=== PATIENT | male | born 2000 | race Caucasian/White ===

== ENCOUNTER 2022-04-29 06:53 | Emergency (ER) | payer BC, SELFPAY ==
--- NOTE | ~2022-04-29 | XR_ITS ---
EXAMINATION: XR CHEST CLINICAL INFORMATION: Chest pain COMPARISON: April 26, 2016 TECHNIQUE: PA view of the chest was obtained. FINDINGS: No significant abnormality is noted involving the heart, lungs, mediastinum, bony thorax or soft tissues. XR/XR chest 1V IMPRESSION: No acute disease.
--- NOTE | ~2022-04-29 | CT_ITS ---
EXAMINATION: CT HEAD WITHOUT CONTRAST CLINICAL INFORMATION: Seizure COMPARISON: April 26, 2016 TECHNIQUE: Contiguous axial imaging was performed from the skull base to vertex without intravenous administration of contrast. This CT examination was performed using dose optimization techniques as appropriate, variously including the following: *Automated exposure control *Adjustment of mA and/or kV according to patient size (this includes techniques or standardized protocols for targeted exams where dose is matched to indication/reason for exam; i.e. extremities or head) *Use of iterative reconstruction technique DLP: 648 mGy-cm FINDINGS: No intracranial hemorrhage is identified. No abnormal extra-axial fluid collection. No significant mass effect or midline structure shift is seen. The ventricles, sulci, and cisterns appear unremarkable. Perales-white matter interface is maintained. Visualized paranasal sinuses and mastoid air cells unremarkable. CT/CT head/brain wo IV con IMPRESSION: No acute intracranial pathology.
[2022-04-29 07:06] VITALS: BP 132/90; BP 157/102; PULSE 112; PULSE 115; RESP 18; TEMP 36.5; O2SAT 100; BMI 24.8
[2022-04-29 07:16] VITALS: BP 132/90; PULSE 101; RESP 16; TEMP 36.5; O2SAT 99
--- NOTE | 2022-04-29 07:20 | ECG_ITS ---
Test Reason : CHEST PAIN Blood Pressure : / mmHG Vent. Rate : 113 BPM Atrial Rate : 113 BPM P-R Int : 128 ms QRS Dur : 086 ms QT Int : 328 ms P-R-T Axes : 066 078 044 degrees QTc Int : 449 ms Sinus tachycardia Otherwise normal ECG No previous ECGs available Referred By: Amarjit Mcintyre Electronically Signed By:Jorge Ball
--- NOTE | 2022-04-29 07:29 | ED_ITS ---
HPI - General Adult General Chief complaint: Seizure Stated complaint: Lethargy Time Seen by Provider: 04/29/22 07:19 Source: EMS Mode of arrival: EMS History of Present Illness HPI narrative: This is a 21 years old male presented to the emergency department after an episode of unresponsiveness at home, is unclear if he had a syncope versus seizure, patient does not remember what happened, he did not bite his tongue he is not incontinent of urine. He has history of accelerated idioventricular rhythm he is on metoprolol. Onset (ago): hour(s) (1) Radiation: non-radiation Severity: mild Relieving factors: none Exacerbating factors: none Related Data Home Medications Medication Instructions Recorded Confirmed metoprolol succinate 100 mg 100 mg PO DAILY 11/09/21 12/26/21 tablet,extended release 24 hr Previous Rx's Medication Instructions Recorded levetiracetam 500 mg tablet 500 mg PO Q12H #60 tabs 04/29/22 (Keppra) Allergies Allergy/AdvReac Type Severity Reaction Status Date / Time No Known Allergies Allergy Verified 12/26/21 10:54 [No Known Allergies*] Review of Systems Review of Systems: Yes all other systems are reviewed and are negative ENT: Reports system reviewed and no additional complaints, except as documented Respiratory: Respiratory: Reports no additional respiratory complaints Genitourinary: Genitourinary: Reports no additional male genitourinary complaints [facility] Past Medical History [facility] Narrative: Accelerated idioventricular rhythm a Family History Family History Father Cholecystitis Hypertension Heart attack, Onset Age: 48 Mother Asthma Epilepsy Social History Social History Housing: House Alcohol intake: never Patient Tobacco Use Status: Never used Tobacco e-Cigarette/Vaping Use: Never Used Advance Directives: No Advance Directives Information Provided: No service: No Current occupational status: employed Current occupation: [employer] Cognitive needs: No Hearing needs: No Vision needs: No Physical Exam ED Vital Signs: Vital Signs - 24 hr 04/29/22 07:06 04/29/22 07:16 04/29/22 09:07 Temperature 97.7 F 97.7 F 97.8 F Pulse Rate 115 H 101 H 111 H Respiratory Rate 18 16 14 Blood Pressure 132/90 H 132/90 H 131/80 Pulse Oximetry 100 99 100 Oxygen Delivery Method Room Air Room Air Room Air 04/29/22 09:27 04/29/22 14:05 Temperature Pulse Rate 105 H 81 Respiratory Rate 15 21 H Blood Pressure 137/80 115/65 Pulse Oximetry 100 98 Oxygen Delivery Method Room Air Room Air BMI result Body Mass Index 24.8 Const General: cooperative and comfortable Nutritional Appearance: well nourished Orientation/consciousness: patient oriented x3 HENMT Head: Yes normal to inspection General nose exam: Normal external nose present Face and sinus: Yes normal facial exam Mouth: Normal oral and palatal mucosa present Throat: Yes posterior oropharynx normal Neck Neck: Yes normal visual inspection and Yes full ROM Chest Chest palpation & inspection: normal inspection of the chest Resp Effort & Inspection: normal respiratory effort Auscultation: clear to auscultation bilaterally Cardio Jugular venous distension: no JVD Rate: regular rate Rhythm: regular rhythm GI Inspection: Yes normal to inspection Palpation (GI): Soft to palpation Percussion: Yes normal to percussion Auscultation: normal bowel sounds Neuro General: patient oriented x3 Cranial nerves: Yes CN's II-XII intact bilaterally Cognition (Neuro): normal cognition Course Reevaluation(s) Reevaluation #1: I spoke with his dad who describes a generalized tonic-clonic seizure lasted for about 3 minutes Time: 07:38 Reevaluation #2: I review his EKG and clinical picture with the [employer] piping designer Adarsh, given the history that he had a normal MRI of the heart/normal echo in the past, and the seizure lasted for about 3 minutes is unlikely that he had a syncope Time: 09:54 Reevaluation #3: REMAIN STABLE MOTHER BED SIDE,NO COMPLAINTS ,ON SINUS RYTHM Time: 13:09 Additional Reevaluation(s): 15:16 I re-examined the patient asymptomatic stable vital sign spoke with the father again at this point I think is safe to discharge the patient home a we had a prolonged observation in the vehicle monitor technician remains stable he was monitored since 07:00. Medications Administered Discontinued Medications Generic Name Dose Route Start Last Admin Trade Name Freq PRN Reason Stop Dose Admin Sodium Chloride 1,000 mls @ 999 mls/hr 04/29/22 07:30 04/29/22 11:04 Ns IVCONT 04/29/22 08:30 Infused .Q1H1M MICKEY Infusion Levetiracetam 2,000 mg 04/29/22 07:36 04/29/22 07:58 Levetiracetam 1,000 Mg Tablet PO 04/29/22 07:37 2,000 mg ONCE ONE Administration Metoprolol Succinate 100 mg 04/29/22 09:54 04/29/22 11:04 Metoprolol Succinate Er 100 Mg Tab.Er.24h PO 04/29/22 09:55 100 mg ONCE ONE Administration Protocol Medical Decision Making Medical Decision Making [facility] Narrative: Patient presented with syncope versus seizure we are going to get EKG/head CT labs 15:20 Patient remain stable he was monitor for several hours remained in sinus rhythm no further seizure noted head ct labs are within normal limit. Patient had a cardiac workup a [facility] with a normal MRI of the heart and normal echo he does not have cardiomyopathy, decision was described by the father as a tonic-clonic lasting for about 3 minutes sounds like a true seizure. Will discharge the patient home on p.o. Walter referral to Neurology Differential Diagnosis Differential Diagnoses: The differential diagnosis associated with the presentation includes Seizure/syncope/ventricular arrhythmia Admission/Observation Consideration of admission/observation: Escalation of care including admission/observation considered Lab Data [facility] Lab Attestation statement: I reviewed the patient's lab results. 04/29/22 07:36 04/29/22 07:36 Labs: Lab Results 04/29/22 04/29/22 04/29/22 Range/Units 07:36 07:36 07:36 WBC 7.4 (4.8-10.8) X10*3/uL RBC 5.29 (4.60-5.80) X10*6/uL Hgb 15.4 (14.0-18.0) g/dl Hct 44.9 (42.0-52.0) % MCV 84.9 (80.0-98.0) fL MCH 29.1 (27.0-33.0) pg MCHC 34.3 (31.0-36.0) g/dl RDW 12.1 (11.0-16.0) % Plt Count 170 (160-400) X10*3/uL MPV 9.9 (9.4-12.4) fL Immature Gran % (Auto) 1.1 H (0.0-0.4) % Neut % (Auto) 67.0 (45-73) % Lymph % (Auto) 26.2 (20-40) % Caroline % (Auto) 5.2 (2-11) % Eos % (Auto) 0.4 (0-4) % Baso % (Auto) 0.1 (0-2) % Lymph # (Auto) 1.9 (1.2-4.9) X10*3/uL Caroline # (Auto) 0.4 (0.1-1.2) X10*3/uL Eos # (Auto) 0.0 (0.0-0.4) X10*3/uL Baso # (Auto) 0.0 (0.0-0.2) X10*3/uL Abs Immat Gran (auto) 0.08 H (0.00-0.03) X10*3/uL Absolute Neuts (auto) 4.9 (2.0-8.3) x10*3/uL Absolute Nucleated RBC 0.000 (0.0-0.012) X10*3/uL Nucleated RBC % (auto) 0.0 (0.0-0.2) /100WBC Sodium 142 (135-145) mmol/L Potassium 3.9 (3.3-5.1) mmol/L Chloride 108 (96-108) mmol/L Carbon Dioxide 22 (22-29) mmol/L Anion Gap 16 (12-20) BUN 19 H (9-16) mg/dL Creatinine 0.93 (0.5-1.4) mg/dL Estim Creat Clear Calc 117.4 Estimated GFR > 60 Random Glucose 109 (60-115) mg/dL Calcium 9.3 (8.4-10.2) mg/dL Magnesium 2.4 (1.6-2.6) mg/dL Total Bilirubin 0.6 (0.0-1.0) mg/dL AST 22 (5-37) U/L ALT 30 (0-40) U/L Alkaline Phosphatase 86 (39-117) U/L Troponin I High Sens < 3.5 (<3.5-35.0) ng/L Total Protein 7.2 (6.5-8.0) g/dL Albumin 4.6 (3.5-5.0) g/dL Urine Opiates Screen (Not Detect) Urine Fentanyl Screen (Not Detect) Ur Barbiturates Screen (Not Detect) Ur Phencyclidine Scrn (Not Detect) Ur Amphetamines Screen (Not Detect) U Benzodiazepines Scrn (Not Detect) Urine Cocaine Screen (Not Detect) U Marijuana (THC) Screen (Not Detect) Ethyl Alcohol < 10 mg/dL COVID-19 (AYAH) (Negative) COVID-19 Clin Com 04/29/22 04/29/22 Range/Units 09:29 11:06 WBC (4.8-10.8) X10*3/uL RBC (4.60-5.80) X10*6/uL Hgb (14.0-18.0) g/dl Hct (42.0-52.0) % MCV (80.0-98.0) fL MCH (27.0-33.0) pg MCHC (31.0-36.0) g/dl RDW (11.0-16.0) % Plt Count (160-400) X10*3/uL MPV (9.4-12.4) fL Immature Gran % (Auto) (0.0-0.4) % Neut % (Auto) (45-73) % Lymph % (Auto) (20-40) % Caroline % (Auto) (2-11) % Eos % (Auto) (0-4) % Baso % (Auto) (0-2) % Lymph # (Auto) (1.2-4.9) X10*3/uL Caroline # (Auto) (0.1-1.2) X10*3/uL Eos # (Auto) (0.0-0.4) X10*3/uL Baso # (Auto) (0.0-0.2) X10*3/uL Abs Immat Gran (auto) (0.00-0.03) X10*3/uL Absolute Neuts (auto) (2.0-8.3) x10*3/uL Absolute Nucleated RBC (0.0-0.012) X10*3/uL Nucleated RBC % (auto) (0.0-0.2) /100WBC Sodium (135-145) mmol/L Potassium (3.3-5.1) mmol/L Chloride (96-108) mmol/L Carbon Dioxide (22-29) mmol/L Anion Gap (12-20) BUN (9-16) mg/dL Creatinine (0.5-1.4) mg/dL Estim Creat Clear Calc Estimated GFR Random Glucose (60-115) mg/dL Calcium (8.4-10.2) mg/dL Magnesium (1.6-2.6) mg/dL Total Bilirubin (0.0-1.0) mg/dL AST (5-37) U/L ALT (0-40) U/L Alkaline Phosphatase (39-117) U/L Troponin I High Sens (<3.5-35.0) ng/L Total Protein (6.5-8.0) g/dL Albumin (3.5-5.0) g/dL Urine Opiates Screen Not Detected (Not Detect) Urine Fentanyl Screen Not Detected (Not Detect) Ur Barbiturates Screen Not Detected (Not Detect) Ur Phencyclidine Scrn Not Detected (Not Detect) Ur Amphetamines Screen Not Detected (Not Detect) U Benzodiazepines Scrn Not Detected (Not Detect) Urine Cocaine Screen Not Detected (Not Detect) U Marijuana (THC) Screen Not Detected (Not Detect) Ethyl Alcohol mg/dL COVID-19 (AYAH) Negative (Negative) COVID-19 Clin Com See Note Independent Interpretation I performed an independent interpretation of an: EKG Interpretation: EKG shows a sinus tachycardia with a rate of about [address]-T changes Radiology Impression Discussion of test interpretation with radiology: I have reviewed the radiologist's reading. Radiologist Impression: without intravenous administration of contrast. This CT examination was performed using dose optimization techniques as appropriate, variously including the following: *Automated exposure control *Adjustment of mA and/or kV according to patient size (this includes techniques or standardized protocols for targeted exams where dose is matched to indication/reason for exam; i.e. extremities or head) *Use of iterative reconstruction technique DLP: 648 mGy-cm FINDINGS: No intracranial hemorrhage is identified. No abnormal extra-axial fluid collection. No significant mass effect or midline structure shift is seen. The ventricles, sulci, and cisterns appear unremarkable. Perales-white matter interface is maintained. Visualized paranasal sinuses and mastoid air cells unremarkable. ? CT/CT head/brain wo IV con IMPRESSION: No acute intracranial pathology. Dictated By: Cheo Buckley MD Signed By: <Electronically signed by Cheo Buckley MD in OV> 04/29/22 0815 Independent Historian Clinical information obtained from an independent historian. History obtained from or confirmed by: Parent Father and mother Discharge Plan Discharge Clinical Impression: Seizure Patient Disposition: Home, Self-Care Instructions: New-Onset Seizure in Adults (ED) Additional Instructions: Follow-up with the neurologist call and make an appointment, you will need of further evaluation likely EEG MRI, we sent a prescription for you for Keppra to take twice a day. 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
[2022-04-29 07:43] LABS: MANUAL DIFF FLAG NO
[2022-04-29 07:44] LABS: Basophils Percent Auto 0.1 % (0-2); Eosinophils Percent Auto 0.4 % (0-4); Hematocrit 44.9 % (42.0-52.0); Hemoglobin 15.4 g/dl (14.0-18.0); Imm Gran Abs Auto 0.08 X10*3/uL (0.00-0.03); Imm Gran Pct Auto 1.1 % (0.0-0.4); Lymphocytes Absolute Auto 1.9 X10*3/uL (1.2-4.9); Lymphocytes Percent Auto 26.2 % (20-40); Mean Corpuscular HGB Conc 34.3 g/dl (31.0-36.0); Mean Corpuscular Hemoglobin 29.1 pg (27.0-33.0); Mean Corpuscular Volume 84.9 fL (80.0-98.0); Mean Platelet Volume 9.9 fL (9.4-12.4); Monocytes Absolute Auto 0.4 X10*3/uL (0.1-1.2); Monocytes Percent Auto 5.2 % (2-11); Neutrophils Absolute Auto 4.9 x10*3/uL (2.0-8.3); Platelet Count 170 X10*3/uL (160-400); Red Blood Count 5.29 X10*6/uL (4.60-5.80); Red Cell Distribution Width 12.1 % (11.0-16.0); White Blood Count 7.4 X10*3/uL (4.8-10.8)
[2022-04-29] MEDS: 0.9 % Sodium Chloride 1,000 ML 999 ML IVCONT (07:57)
[2022-04-29] MEDS: levETIRAcetam 1,000 MG TABLET 2000 MG PO (07:58)
[2022-04-29 08:03] LABS: Alanine Aminotransferase 30 U/L (0-40); Albumin Level 4.6 g/dL (3.5-5.0); Alkaline Phosphatase 86 U/L (39-117); Anion Gap 16 (12-20); Aspartate Amino Transferase 22 U/L (5-37); Bilirubin Total 0.6 mg/dL (0.0-1.0); Blood Urea Nitrogen 19 mg/dL (9-16); Calcium 9.3 mg/dL (8.4-10.2); Carbon Dioxide 22 mmol/L (22-29); Chloride 108 mmol/L (96-108); Creatinine Clr Calc Pharmacy 117.4; Estimated Glomerular Filt Rate > 60; Glucose Random 109 mg/dL (60-115); Potassium 3.9 mmol/L (3.3-5.1); Sodium 142 mmol/L (135-145); Total Protein 7.2 g/dL (6.5-8.0)
--- NOTE | 2022-04-29 08:11 | PC.NURSE ---
Alert and oriented, resp even and unlabored. Coming from home where his father found him in the bathroom having a seizure this morning. States he was convusing and appeared disoriented afterwards. Awake and alert upon arival. Seizure precautions in place, IV established fluids infusing and medicated per the MAR.
[2022-04-29 08:16] LABS: Troponin-I High Sensitivity < 3.5 ng/L (<3.5-35.0)
[2022-04-29 08:37] LABS: Ethanol < 10 mg/dL; Magnesium 2.4 mg/dL (1.6-2.6)
[2022-04-29 09:07] VITALS: BP 131/80; PULSE 111; RESP 14; TEMP 36.6; O2SAT 100
[2022-04-29 09:27] VITALS: BP 137/80; PULSE 105; RESP 15; O2SAT 100
[2022-04-29 09:58] LABS: COVID-19 Test Negative (Negative); IDNOW Serial# 55D5AD1C
[2022-04-29] MEDS: Metoprolol Succinate ER 100 MG TAB.ER.24H PO (11:04)
--- NOTE | 2022-04-29 11:14 | PC.NURSE ---
Ambulated with steady gait to the bathroom to give urine sample. Pt aware of plan for observation at this time. Offering no complaints.
[2022-04-29 11:38] LABS: Amphetamine Screen Urine Not Detected (Not Detect); Barbiturates, Urine Not Detected (Not Detect); Benzodiazepines Screen Urine Not Detected (Not Detect); Cannabinoid Screen Urine Not Detected (Not Detect); Cocaine Screen Urine Not Detected (Not Detect); Fentanyl, urine Not Detected (Not Detect); Opiate Screen Urine Not Detected (Not Detect); Phencyclidine Screen Urine Not Detected (Not Detect)
[2022-04-29 14:05] VITALS: BP 115/65; PULSE 81; RESP 21; O2SAT 98
== END 2022-04-29 15:39 | disposition home or self-care (01) ==
PROVIDERS: Emergency Provider Emergency Medicine; PCP Physician Assistant
DX: R56.9 Unspecified convulsions (principal); R51.9 Headache, unspecified; R00.0 Tachycardia, unspecified; Z20.822 Contact with and (suspected) exposure to COVID-19; Z20.828 Contact with and (suspected) exposure to other viral communicable diseases; Z79.899 Other long term (current) drug therapy
CPT/HCPCS: 36415; 70450; 71045; 80053; 80307; 82077; 83735; 84484; 85025; 87635; 93005; 96360; 99285

== ENCOUNTER 2022-05-03 14:07 | Outpatient (REF) | payer BC, SELFPAY ==
--- NOTE | ~2022-05-03 | XR_ITS ---
EXAMINATION: XR shoulder LT min 2V, XR humerus LT CLINICAL INFORMATION: Reason for Exam M79.622 - Pain in left upper arm COMPARISON: None. TECHNIQUE: 3 views left shoulder; AP and lateral views left humerus FINDINGS: Left shoulder: No acute fracture or dislocation. Glenohumeral joint space and acromiohumeral interval are maintained. AC joint is congruent and intact. The visualized portion of the left lung is grossly clear. Left humerus: No fracture or malalignment. No elbow joint effusion. No osseous lesion. XR/XR shoulder LT min 2V IMPRESSION: No acute osseous injury at the left shoulder or left humerus.
--- NOTE | ~2022-05-03 | XR_ITS ---
EXAMINATION: XR shoulder LT min 2V, XR humerus LT CLINICAL INFORMATION: Reason for Exam M79.622 - Pain in left upper arm COMPARISON: None. TECHNIQUE: 3 views left shoulder; AP and lateral views left humerus FINDINGS: Left shoulder: No acute fracture or dislocation. Glenohumeral joint space and acromiohumeral interval are maintained. AC joint is congruent and intact. The visualized portion of the left lung is grossly clear. Left humerus: No fracture or malalignment. No elbow joint effusion. No osseous lesion. XR/XR humerus LT IMPRESSION: No acute osseous injury at the left shoulder or left humerus.
== END 2022-05-03 14:08 | disposition home or self-care (01) ==
LOC: HO.HMGCX 14:07
PROVIDERS: PCP Physician Assistant; Visit Provider Physician Assistant Medical
DX: M79.622 Pain in left upper arm (principal); M25.512 Pain in left shoulder
CPT/HCPCS: 73030; 73060

== ENCOUNTER 2022-07-23 14:19 | Outpatient (REF) | payer BC, SELFPAY ==
--- NOTE | ~2022-07-23 | MR_ITS ---
EXAMINATION: MR BRAIN WITHOUT AND WITH CONTRAST CLINICAL INFORMATION: Seizure. COMPARISON: CT head from 04/29/2022. TECHNIQUE: MRI of the brain was obtained using routine sequences without and following the administration of 7.5 mL of Gadavist intravenous contrast. FINDINGS: No focal restricted diffusion is demonstrated to suggest acute or subacute cerebral ischemia. No evidence of acute or chronic hemorrhagic products on heme-sensitive imaging. Small focus of T2 hyperintensity within the deep white matter of the right parietal lobe suggestive of a prominent perivascular space. Few additional nonspecific linear foci of T2 FLAIR hyperintensity within the deep white matter of the bilateral frontal lobes. No additional parenchymal signal abnormalities. The ventricles are normal in morphology and size. No abnormal mass effect. No midline shift. The hippocampi are symmetric in size, contour, and signal intensity. The temporal horns appear symmetric. Normal appearance of the pituitary gland. Normal positioning of the cerebellar tonsils. Normal arterial and venous vascular flow voids are present. No abnormal contrast enhancement. Normal, homogeneous marrow signal. Mild mucosal thickening of the paranasal sinuses. No signal abnormalities within the mastoids. MR/MR head/brain wo/w con IMPRESSION: 1. No acute intracranial abnormalities. No abnormal intracranial enhancement. 2. Minimal nonspecific white matter changes suggestive of a minimally prominent perivascular spaces. 3. No MRI abnormalities to explain the patient's spells.
== END 2022-07-23 14:20 | disposition home or self-care (01) ==
LOC: HO.MRI 14:19
PROVIDERS: PCP Physician Assistant; Visit Provider Psychiatry & Neurology Neurology
DX: G40.909 Epilepsy, unspecified, not intractable, without status epilepticus (principal)
CPT/HCPCS: 70553; A9585

== ENCOUNTER 2022-12-31 10:02 | Outpatient (AMB) | payer BC, SELFPAY ==
--- NOTE | 2022-12-31 10:16 | MHC.PC.OV ---
Vital Signs 12/31/22 10:17 Height 5 ft 5.75 in Weight 140 lb 8 oz BMI 22.8 BP 110/78 Blood Pressure Location Lt brachial Position Sitting Respiration 17 Pulse 95 Pulse Source Pulse Oximeter Pulse Oximetry (%) 98 Oxygen Delivery Method Room Air Intake Visit Reasons: PE Intake Note: Patient is here today for a physical. 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 Accompanied by: Self / Same As Patient Allergies No Known Allergies [No Known Allergies*] Allergy (Verified 12/31/22 10:33) Medication List - Last Reconciled 12/31/22 by Vince Denis PA-C levetiracetam (Keppra) 500 mg PO Q12H metoprolol succinate ER 100 mg PO DAILY Tobacco use date assessed: 12/31/22 Dental Screening Dental Screen Date: 12/31/22 Did you have a dental visit in the last 12 months?: Yes Did you have a dental problem in the last 6 months where you did not have access to dental care?: No Was dental information given to patient?: Patient has dentist HPI PE HPI Details Hair is a 22-year-old male here today routine annual physical. Continues to work part-time at a local [employer]. Patient has a past medical history significant for seizure disorder, accelerated Idioventricular rythm and continues on metoprolol has upcoming appointment with a [facility] stove fitter. He otherwise denies any further palpitations following beta-demetria medication. Seizure disorder: Now followed by Neurology and has been started on Keppra. Had a seizure in June 2022. At this point does not have a clear cause of his seizure. Has followed up with brain MRI and EEG which were both unremarkable. Vaccines: Needs Tdap vaccine, up-to-date with COVID vaccine, needs flu vaccine. .. Laboratory Tests 04/29/22 07:36 RBC 5.29 Creatinine 0.93 PFSH Family History Father Cholecystitis Hypertension Heart attack, Onset Age: 48 Mother Asthma Epilepsy Social History Housing: House Alcohol intake: never Patient Tobacco Use Status: Never used Tobacco e-Cigarette/Vaping Use: Never Used service: No Current occupational status: employed Current occupation: [employer] Cognitive needs: No Hearing needs: No Vision needs: No Questionnaire PHQ-9 Over the last 2 weeks, how often have you been bothered by any of the following problems? 1. Little interest or pleasure in doing things: not at all 2. Feeling down, depressed, or hopeless: not at all 3. Trouble falling or staying asleep, or sleeping too much: not at all 4. Feeling tired or having little energy: not at all 5. Poor appetite or overeating: not at all 6. Feeling bad about yourself - or that you are a failure or have let yourself or your family down: not at all 7. Trouble concentrating on things, such as reading the newspaper or watching television: not at all 8. Moving or speaking so slowly that other people could have noticed. Or the opposite - being so fidgety or restless that you have been moving around a lot more than usual: not at all 9. Thoughts that you would be better off or of hurting yourself in some way: not at all Total score: 0 Depression Screening Interpretation: Negative Depression Screening Done: Yes 52588 - PHQ-9 Billing: Yes Source: Developed by Drs. Rob Hurst, Tamiko Partida, Michael Snyder and colleagues, with an educational sruthi from [employer]. Thrive Questionnaire Date Thrive assessed: 12/31/22 I am a: Patient What is your living situation today?: I have a steady place to live Within the past 12 months, did the food you bought not last and you didn't have the money to get more?: Never true Within the past 12 months, did you worry whether your food would run out before you got money to buy more?: Never true Do you have trouble paying for medicines?: No Do you have trouble getting transportation to medical appointments?: No Do you have trouble paying your heating and electricity bill?: No Do you have trouble taking care of your child, family member or friend?: No Do you have trouble with day-to-day activities such as bathing, preparing meals, shopping, managing finances, etc.?: No Are you currently unemployed and looking for a job?: No Are you interested in more education?: No Please select the resources that you would like help with: None Currently or been in a relationship where the following occur: no concerns reported AUDIT C Alcohol Use Questionnaire (AUDIT-C) 1. How often do you have a drink containing alcohol?: Never 3. How often do you have six or more drinks on one occasion?: Never Total Score: 0 DEB-7 AMB Questionnaire DEB-7 Date DEB - 7 assessed: 12/31/22 Feeling nervous, anxious, or on edge: 0 = Not at all Not being able to stop or control worryin = Not at all Worrying too much about different things: 0 = Not at all Trouble relaxin = Not at all Being so restless that it is hard to sit still: 0 = Not at all Becoming easily annoyed or irritable: 0 = Not at all Feeling afraid as if something awful might happen: 0 = Not at all Total DEB-7 score (0-4 normal; 5-9 mild; 10-14 moderate; 15-21 severe): 0 Source: Developed by Drs. Rob Hurst, Tamiko Partida, Michael Snyder and colleagues, with an educational sruthi from [employer]. DEB-7 Assessment Billing DEB-7 Assessment Tool: DEB-7 Assessment 99447 Review of Systems Const Denies body aches, Denies chills, Denies excessive sweating, Denies fatigue, Denies fever(s) and Denies headache(s) Eyes Denies blurry vision ENT Denies dysphagia, Denies vertigo, Denies dizziness, Denies headache(s), Denies hearing loss and Denies tinnitus Card Denies chest pain, Denies chest pain with activity, Denies syncope, Denies irregular heart rhythm and Denies dyspnea Resp Denies chest congestion, Denies cough, Denies hemoptysis, Denies dyspnea and Denies wheezing GI Denies abdominal pain, Denies melena, Denies hematochezia, Denies coffee ground emesis, Denies dysphagia, Denies diarrhea, Denies nausea and Denies vomiting Denies difficulty urinating, Denies dysuria, Denies urinary frequency, Denies urinary hesitancy and Denies urinary urgency Musc Denies arthralgias, Denies limited range of motion, Denies muscle cramps and Denies muscle weakness Skin/Breast Denies rash and Denies skin ulcer Neuro Denies Abnormal speech present, Denies confusion, Denies vertigo, Denies dizziness, Denies syncope, Denies headache(s), Denies memory loss and Denies seizure-like activity Psych Denies anxiety, Denies confusion, Denies depression, Denies memory loss, Denies panic attacks and Denies paranoia Endo Denies excessive sweating, Denies fatigue, Denies flushing, Denies polydipsia and Denies polyuria Aller/Immun Denies wheezing Physical exam (Primary Care) Vital Signs: Last Vital Signs Pulse 95 12/31/22 10:17 Resp 17 12/31/22 10:17 BP 110/78 12/31/22 10:17 Pulse Ox 98 12/31/22 10:17 Oxygen Delivery Method Room Air 12/31/22 10:17 BMI result Body Mass Index 22.8 Tobacco/Smoking Status: Tobacco use Status Tobacco use date assessed 12/31/22 12/31/22 10:23 Patient Tobacco Use Status Never used Tobacco 12/31/22 10:17 e-Cigarette/Vaping Use Never Used 12/31/22 10:17 PHQ-9: PHQ-9 Score PHQ-9: Total score 0 12/31/22 10:57 Depression Screening Interpretation: Negative Thrive Assessment: Date of Thrive Assessment Date Thrive assessed 12/31/22 12/31/22 10:23 Currently or been in a relationship where the following occur: no concerns reported Const General: cooperative, comfortable, no acute distress, alert and awake; No confusion Orientation/consciousness: oriented to person, oriented to place, patient oriented x3 and No confusion HENMT Head: Yes normocephalic Ears: external ears normal and TM's normal bilaterally Face and sinus: No sinus tenderness Mouth: Normal oral and palatal mucosa present and tongue normal Teeth and gingiva: dentition normal and gingiva normal Throat: Yes posterior oropharynx normal, Yes tonsils normal and Yes uvula midline Eyes Conjunctivae: conjunctivae normal Sclerae: sclerae normal Pupils: Equal, round and reactive pupils present EOM: EOMs intact bilaterally Direct Ophthalmoscopy: No no photophobia Neck Neck: Yes no lymphadenopathy, No tender and Yes no JVD Thyroid: Thyroid normal Carotids: no bruits Chest Chest palpation & inspection: no tenderness Resp Effort & Inspection: normal respiratory effort, no audible wheezes, not labored and no stridor Auscultation: no crackles, no rales, no rhonchi and no wheezes Cardio Jugular venous distension: no JVD Rate: regular rate, not bradycardic and not tachycardic Rhythm: regular rhythm Bruits: no carotid bruits Peripheral pulses: Peripheral pulses 2+ throughout GI Inspection: Yes normal to inspection, No abdominal wall ecchymosis and No visible herniation Palpation (GI): Soft to palpation, nontender, no guarding, not rigid and No hepatosplenomegaly present Auscultation: normoactive bowel sounds General: Yes no CVA tenderness Back/Spine/Pelvis Back: no CVA tenderness and No back tenderness Cervical Spine: cervical ROM normal Thoracic/Lumbar Spine: thoracic and lumbar spine normal to inspection, straight leg raise negative bilaterally, No thoraco-lumbar ROM limited and No lumbar spinal tenderness Skin Lesions: no lesions Rashes: no rashes Wounds: no wounds Neuro General: oriented to person, oriented to place, patient oriented x3, CN's II-XI intact bilaterally and No confusion Cranial nerves: Yes Equal, round and reactive pupils present and Yes Normal accommodation reflex present Cognition (Neuro): normal cognition Speech: No Abnormal speech present Gait exam (Neuro): Normal gait present Motor exam (neuro): 5/5 motor strength present throughout Extrem Right upper extremity: full ROM; no cyanosis Left upper extremity: full ROM; no cyanosis Right lower extremity: no edema Left lower extremity: no edema Psych Appearance: grossly normal Mental Status: mental status grossly normal Affect: normal affect Attitude: cooperative Thought process: Normal thought process present Office Procedures Flu Questionnaire Does the patient have a severe egg allergy?: No Does the patient have severe life threatening allergies?: No Does the patient have a fever or illness today?: No Has the patient ever had Guillain-[place] Syndrome?: No Has the patient ever had any past reaction to a flu shot?: No Immunizations flu vacc [id number] 6mos up(PF) 60 mcg(15 mcgx4)/0.5 mL IM syringe Performing Provider: Vince Denis PA-C [place] [facility] [place] [facility] Administered by: NICK Tapia on 12/31/22 11:02 Dose Route Admin Location Dispensed Lot Number Expiration Date 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 Eligible 12/31/22 Private Assessment and Plan Assessment & Plan (1) Annual physical exam: Code(s): Z00.00 - Encounter for general adult medical examination without abnormal findings (2) AIVR (accelerated idioventricular rhythm): Code(s): I44.2 - Atrioventricular block, complete Plan: Patient is followed by Cardiology. He reports his palpitations are not as evident as before. Continues on metoprolol 100 mg daily. He does report his heart rates elevate at times of anxiety usually. He has stopped consumption of caffeine. (3) Seizure: Code(s): R56.9 - Unspecified convulsions Plan: Suffered a seizure and April 2022. He believes it was due to sleep deprivation. Now on Keppra and follow and a by a neurologist. No further syncopal episodes or seizure activity reported. Orders: Orders Comprehensive [place]. Panel Fast Today Z13.1 - Encounter for screening for diabetes mellitus Influenza [id number] Immunization Today Z23 - Encounter for immunization Coding Level of Care Code Est Pt Prev Care [id number]) Diagnoses Annual physical exam Z00.00 AIVR (accelerated idioventricular rhythm) I44.2 Seizure R56.9 Additional Codes DEB-7 Assessment Billing - DEB-7 Assessment Tool: DEB-7 Assessment 32237 ([id number])
[2022-12-31 10:17] VITALS: BP 110/78; PULSE 95; RESP 17; O2SAT 98; BMI 22.8
== END 2022-12-31 11:01 | disposition home or self-care (01) ==
PROVIDERS: Visit Provider Physician Assistant
DX: Z00.00 Encounter for general adult medical examination without abnormal findings (principal); I44.2 Atrioventricular block, complete; R56.9 Unspecified convulsions; Z23 Encounter for immunization
CPT/HCPCS: 90471; 90686; 99395

== ENCOUNTER 2024-03-30 01:04 | Emergency (ER) | payer BC, SELFPAY ==
[2024-03-30 01:10] VITALS: BP 125/73; PULSE 130; O2SAT 97
[2024-03-30 01:14] VITALS: BP 119/77; PULSE 105; RESP 18; TEMP 36.8; O2SAT 95; BMI 23.4
[2024-03-30] MEDS: 0.9 % Sodium Chloride 1,000 ML 999 ML IVCONT (01:23)
[2024-03-30 01:39] LABS: MANUAL DIFF FLAG NO
--- NOTE | 2024-03-30 01:40 | ED_ITS ---
HPI - Seizure General Chief Complaint: Seizure Stated Complaint: seizure, hx sz med compliant, unwell & vomiting Time Seen by Provider: 03/30/24 01:19 Source: patient Mode of arrival: ambulatory Limitations: no limitations History of Present Illness ED Provider: Dr. Maryan Sanchez HPI Narrative: Patient comes to the emergency room via ambulance from home. Patient states that he had a seizure. Patient does not remember much what happened but the seizure was witnessed by his mother. Patient states that he is compliant with his Keppra, takes 750 mg b.i.d.. Patient states that yesterday he did not feel well, missed work. At this time, patient denies any fever or chills, denies nausea vomiting diarrhea, URI or UTI symptoms. Patient states that his last seizure was 3 months ago, that is when his Keppra was increased from 500 mg to 750 mg b.i.d. Seizure History: No Related Data Home Medications ?Medication ?Instructions ?Recorded ?Confirmed metoprolol succinate 100 mg 100 mg PO DAILY 11/09/21 12/31/22 tablet,extended release 24 hr Previous Rx's ?Medication ?Instructions ?Recorded levetiracetam 500 mg tablet 500 mg PO Q12H #60 tabs 06/11/22 (Keppra) levetiracetam 1,000 mg tablet 1,000 mg PO BID #60 tabs 03/30/24 (Keppra) Allergies Allergy/AdvReac Type Severity Reaction Status Date / Time No Known Allergies Allergy Verified 03/30/24 01:14 [No Known Allergies*] Review of Systems 2 Review of Systems: Constitutional : No Weight loss, No Fever, No Chills, No Night Sweats, No Fatigue, No Malaise ENT/Mouth : No Hearing loss, No Ear Pain, No Nasal Congestion, No Sinus Pain, No Hoarseness, No sore throat, No Rhinorrhea, No Swallowing Difficulty Eyes: No Eye Pain, No Swelling, No Redness, No Foreign Body, No Discharge, No Vision Changes Cardiovascular : No Chest Pain, No SOB, No Dyspnea on Exertion, No Orthopnea, No Edema, No Palpitations Respiratory : No Cough, No Sputum, No Wheezing, No Smoke Exposure, No Dyspnea Gastrointestinal : No Nausea, No Vomiting, No Diarrhea, No Constipation, No abdominal Pain, No Hematochezia, No Melena Genitourinary : no irregular bleeding, No Dysuria, No Urinary Frequency, No Hematuria, No Urinary Incontinence, No Urgency, No Flank Pain, No Urinary Flow Changes, No Hesitancy Musculoskeletal : No joint pain, No Myalgias, No Joint Swelling Skin : No Skin Lesions, No rash Neuro : Patient reports having a seizure, feeling a bit confused, No Weakness, No Numbness, No Paresthesias, No Loss of Consciousness, No Dizziness, No Headache Psych : No Anxiety/Panic, No Depression, No SI/HI/AH/VH, No Social Issues, Heme/Lymph: No Bruising, No Bleeding,No Lymphadenopathy Endocrine : No Polyuria, No Polydipsia, No Temperature Intolerance [facility] Family History Family History Father Cholecystitis Hypertension Heart attack, Onset Age: 48 Mother Asthma Epilepsy Social History Social History Housing: House Alcohol intake: never Patient Tobacco Use Status: Never used Tobacco e-Cigarette/Vaping Use: Never Used Advance Directives: No Advance Directives Information Provided: Yes service: No Current occupational status: employed Current occupation: [employer] Cognitive needs: No Hearing needs: No Vision needs: No Physical Exam 2 Vital Signs: Vital Signs: Last Vital Signs Temp 98.1 F 03/30/24 03:42 Pulse 87 03/30/24 03:42 Resp 20 03/30/24 03:42 BP 113/66 03/30/24 03:42 Pulse Ox 96 03/30/24 03:42 O2 Del Method Room Air 03/30/24 03:42 BMI result Body Mass Index 23.4 Const: Other: Appearance: Alert. Oriented X3. No acute distress. Seems a bit confused but fairly coherent Eyes: Pupils equal, round and reactive to light. ENT: Pharynx normal. Neck: Normal inspection. Neck supple. No lymph nodes noted. No crepitus CVS: Normal heart rate and rhythm. Pulses normal. Normal S1 and S2 Respiratory: No respiratory distress. Breath sounds normal. No Wheezing. No rales Abdomen: Soft and nontender. No rigidity. No distention. Skin: Skin warm and dry. Normal skin color. Normal skin turgor. Extremities: No lower extremity edema. No Lacerations. No Rash Neuro: Oriented X 3. No motor deficit. No sensory deficit. Moving all extremities. No slurred speech. CN 2 through 12 grossly intact Psych: calm, cooperative, normal affect Course Course Course Narrative: Patient receiving IV fluids, an extra dose of Keppra 1500 mg IV All of patient's labs pending. Medications Administered Discontinued Medications Generic Name Dose Route Start Last Admin Trade Name Shira PRN Reason Stop Dose Admin Sodium Chloride 1,000 mls @ 999 mls/hr 03/30/24 01:20 03/30/24 02:34 Ns IVCONT 03/30/24 02:20 Infused .Q1H1M ONE Infusion Levetiracetam 750 mg/ Sodium 107.5 mls @ 430 mls/hr 03/30/24 01:43 03/30/24 02:34 Chloride IV 03/30/24 01:57 Infused ONCE ONE Infusion Medical Decision Making Medical Decision Making [facility] [place] Narrative: My interpretation of labs, no obvious abnormality in patient's hematology and chemistry, lactic acid elevated secondary to the seizure. Corrected with IV fluids. U tox negative. I discussed with the patient that in the meantime we will increase the Keppra to 1000 mg b.i.d. until he sees his neurologist. Patient states that he follows up with Dr. Caballero Differential Diagnosis Differential Diagnoses: The differential diagnosis associated with the presentation includes (Breakthrough seizure) Admission/Observation Consideration of admission/observation: Escalation of care including admission/observation considered Lab Data [facility] [place] Lab Attestation statement: I reviewed the patient's lab results. 03/30/24 01:33 03/30/24 01:33 Labs: Lab Results 03/30/24 03/30/24 Range/Units 01:33 03:55 WBC 6.5 (4.8-10.8) X10*3/uL RBC 4.91 (4.60-5.80) X10*6/uL Hgb 14.6 (14.0-18.0) g/dl Hct 41.0 L (42.0-52.0) % MCV 83.5 (80.0-98.0) fL MCH 29.7 (27.0-33.0) pg MCHC 35.6 (31.0-36.0) g/dl RDW 11.8 (11.0-16.0) % Plt Count 127 L D (160-400) X10*3/uL MPV 10.2 (9.4-12.4) fL Immature Gran % (Auto) 0.3 (0.0-0.4) % Neut % (Auto) 86.5 H (45-73) % Lymph % (Auto) 5.1 L (20-40) % [place] % (Auto) 7.9 (2-11) % Eos % (Auto) 0.0 (0-4) % Baso % (Auto) 0.2 (0-2) % Lymph # (Auto) 0.3 L (1.2-4.9) X10*3/uL [place] # (Auto) 0.5 (0.1-1.2) X10*3/uL Eos # (Auto) 0.0 (0.0-0.4) X10*3/uL Baso # (Auto) 0.0 (0.0-0.2) X10*3/uL Abs Immat Gran (auto) 0.02 (0.00-0.03) X10*3/uL Absolute Neuts (auto) 5.6 (2.0-8.3) x10*3/uL Absolute Nucleated RBC 0.000 (0.0-0.012) X10*3/uL Nucleated RBC % (auto) 0.0 (0.0-0.2) /100WBC Sodium 135 (135-145) mmol/L Potassium 3.9 (3.3-5.1) mmol/L Chloride 105 (96-108) mmol/L Carbon Dioxide 20 L (22-29) mmol/L Anion Gap 14 (12-20) BUN 16 (9-16) mg/dL Creatinine 0.82 (0.5-1.4) mg/dL Estim Creat Clear Calc 126.4 Estimated GFR > 60 Random Glucose 152 H (60-115) mg/dL Lactic Acid 4.0 H* (0.5-2.0) mmol/L Lactic Acid F/U @ 2Hr 0.8 (0.5-2.0) mmol/L Calcium 8.6 D (8.4-10.2) mg/dL Total Bilirubin 0.8 (0.0-1.0) mg/dL Direct Bilirubin 0.3 (0.0-0.5) mg/dL AST 29 (5-37) U/L ALT 34 (0-40) U/L Alkaline Phosphatase 68 (39-117) U/L Total Creatine Kinase 106 (38-174) U/L Total Protein 7.0 (6.5-8.0) g/dL Albumin 4.1 (3.5-5.0) g/dL Urine Color Yellow Urine Appearance Clear Urine pH 6.0 (5.0-9.0) Ur Specific [place] >= 1.030 H (1.005-1.025) Urine Protein 30 (1+) H (Neg-Trace) mg/dL Urine Glucose (UA) Negative (Negative) mg/dL Urine Ketones 15 (Negative) mg/dL Urine Blood Negative (Negative) Urine Nitrite Negative (Negative) Ur Leukocyte Esterase Negative (Negative) Urine RBC 0-2 (0-2) /HPF Urine WBC 0-5 (0-5) /HPF Ur Squamous Epith Cells 0-2 (0-2) /HPF Urine Bacteria None Seen (None Seen) Hyaline Casts 3-5 (0-2) /LPF Urine Opiates Screen Not Detected (Not Detect) Ur Buprenorphine Scrn Not Detected (Not Detect) ng/mL Ur Oxycodone Screen Not Detected (Not Detect) ng/mL Urine Methadone Screen Not Detected (Not Detect) ng/mL Urine Fentanyl Screen Not Detected (Not Detect) Ur Barbiturates Screen Not Detected (Not Detect) Ur Phencyclidine Scrn Not Detected (Not Detect) Ur Amphetamines Screen Not Detected (Not Detect) U Benzodiazepines Scrn Not Detected (Not Detect) Urine Cocaine Screen Not Detected (Not Detect) U Marijuana (THC) Screen Not Detected (Not Detect) Ethyl Alcohol < 10 mg/dL Critical Care Time Critical Care Time Critical Care Time: Yes Total Critical Care Time: 45 Attestation: I have personally provided critical care time. Time includes review of lab data, radiology results, discussion with consultants, and monitoring for potential decompensation. Intervention performed as documented. Discharge Plan Discharge Clinical Impression: Breakthrough seizure Patient Disposition: Home, Self-Care Instructions: Recurrent Seizures in Adults (ED) Additional Instructions: Please follow-up with your primary care physician tomorrow. If you have any worsening or new symptoms, please return to the emergency room or call 911 Prescriptions: New levetiracetam [Keppra] 1,000 mg tablet 1,000 mg PO BID Qty: 60 0RF No Action levetiracetam [Keppra] 500 mg tablet 500 mg PO Q12H Qty: 60 2RF metoprolol succinate 100 mg tablet extended release 24 hr 100 mg PO DAILY Stand Alone Forms: Work/School Release Print Language: Lithuanian
[2024-03-30 01:43] LABS: Basophils Percent Auto 0.2 % (0-2); Hemoglobin 14.6 g/dl (14.0-18.0); Imm Gran Abs Auto 0.02 X10*3/uL (0.00-0.03); Imm Gran Pct Auto 0.3 % (0.0-0.4); Lymphocytes Absolute Auto 0.3 X10*3/uL (1.2-4.9); Lymphocytes Percent Auto 5.1 % (20-40); Mean Corpuscular HGB Conc 35.6 g/dl (31.0-36.0); Mean Corpuscular Hemoglobin 29.7 pg (27.0-33.0); Mean Corpuscular Volume 83.5 fL (80.0-98.0); Mean Platelet Volume 10.2 fL (9.4-12.4); Monocytes Absolute Auto 0.5 X10*3/uL (0.1-1.2); Monocytes Percent Auto 7.9 % (2-11); Neutrophils Absolute Auto 5.6 x10*3/uL (2.0-8.3); Neutrophils Percent Auto 86.5 % (45-73); Platelet Count 127 X10*3/uL (160-400); Red Blood Count 4.91 X10*6/uL (4.60-5.80); Red Cell Distribution Width 11.8 % (11.0-16.0); White Blood Count 6.5 X10*3/uL (4.8-10.8)
[2024-03-30 02:02] LABS: Alanine Aminotransferase 34 U/L (0-40); Albumin Level 4.1 g/dL (3.5-5.0); Anion Gap 14 (12-20); Aspartate Amino Transferase 29 U/L (5-37); Bilirubin Direct 0.3 mg/dL (0.0-0.5); Bilirubin Total 0.8 mg/dL (0.0-1.0); Blood Urea Nitrogen 16 mg/dL (9-16); Calcium 8.6 mg/dL (8.4-10.2); Carbon Dioxide 20 mmol/L (22-29); Chloride 105 mmol/L (96-108); Ethanol < 10 mg/dL; Glucose Random 152 mg/dL (60-115); Potassium 3.9 mmol/L (3.3-5.1); Sodium 135 mmol/L (135-145)
[2024-03-30] MEDS: levETIRAcetam 750 MG in 0.9 % Sodium Chloride 100 ML 430 MG IV (02:04)
[2024-03-30 02:07] VITALS: BP 116/74; PULSE 103; RESP 15; O2SAT 97
[2024-03-30 02:20] LABS: Alkaline Phosphatase 68 U/L (39-117); Creatinine Clr Calc Pharmacy 126.4; Estimated Glomerular Filt Rate > 60
[2024-03-30 03:38] LABS: Reflex Lactate? Lactic Acid Added
[2024-03-30 03:42] VITALS: BP 113/66; PULSE 87; RESP 20; TEMP 36.7; O2SAT 96
[2024-03-30 04:02] LABS: Appearance Urine Clear; Color Urine Yellow; Glucose Urine UA Negative (Negative); Leukocyte Esterase Urine Negative (Negative); Nitrite Urine Negative (Negative); Specific Gravity - Urine >= 1.030 (1.005-1.025); UMIC TRIGGER UACC YES; Urine Blood Negative (Negative); Urine Ketones 15 mg/dL (Negative); Urine Protein 30 (1+) mg/dL (Neg-Trace)
[2024-03-30 04:04] LABS: Bacteria Urine None Seen (None Seen); RBC Urine 0-2 /HPF (0-2); Squamous Epithelial Cell Urine 0-2 /HPF (0-2); WBC Urine 0-5 /HPF (0-5)
[2024-03-30 04:16] LABS: ~Lactic Acid-LAB USE ONLY 0.8 mmol/L (0.5-2.0)
[2024-03-30 04:17] LABS: Amphetamine Screen Urine Not Detected (Not Detect); Barbiturates, Urine Not Detected (Not Detect); Benzodiazepines Screen Urine Not Detected (Not Detect); Buprenorphine Scr Not Detected (Not Detect); Cannabinoid Screen Urine Not Detected (Not Detect); Cocaine Screen Urine Not Detected (Not Detect); Fentanyl, urine Not Detected (Not Detect); Methadone Screen, Urine Not Detected (Not Detect); Opiate Screen Urine Not Detected (Not Detect); Oxycodone Screen Urine Not Detected (Not Detect); Phencyclidine Screen Urine Not Detected (Not Detect)
[2024-03-30 04:57] VITALS: BP 112/66; PULSE 96; RESP 18; TEMP 36.6; O2SAT 96
[2024-03-30 04:58] VITALS: BP 112/66; PULSE 96; RESP 18; TEMP 36.6; O2SAT 96
== END 2024-03-30 04:58 | disposition home or self-care (01) ==
PROVIDERS: Emergency Provider Emergency Medicine; PCP Physician Assistant
DX: R56.9 Unspecified convulsions (principal)
CPT/HCPCS: 36415; 80048; 80076; 80307; 81001; 82550; 83605; 85025; 96361; 96374; 99284; J1953

== ENCOUNTER 2024-10-08 09:29 | Outpatient (AMB) | payer BC, SELFPAY ==
--- NOTE | 2024-10-08 09:32 | MHC.PC.OV ---
Vital Signs 10/08/24 09:36 Height 5 ft 6 in Weight 136 lb 2 oz BMI 22.0 BP 108/72 Blood Pressure Location Lt brachial Position Sitting Respiration 18 Pulse 88 Pulse Source Pulse Oximeter Temp 97.3 F Temp Source Temporal Artery Scan Pulse Oximetry (%) 97 Oxygen Delivery Method Room Air Intake Visit Reasons: annual exam Recruitment Manager Required: No Accompanied by: Self / Same As Patient Allergies No Known Allergies (No Known Allergies*) Allergy (Verified 10/08/24 09:50) Medication List - Last Reconciled 10/08/24 by Vince Denis PA-C levetiracetam (Keppra) 1,000 mg PO BID levetiracetam (Keppra) 500 mg PO Q12H Tobacco use date assessed: 10/08/24 Dental Screening Dental Screen Date: 10/08/24 Did you have a dental visit in the last 12 months?: No Did you have a dental problem in the last 6 months where you did not have access to dental care?: No Was dental information given to patient?: Patient has dentist HPI annual exam HPI Details Hair is a 23-year-old male here today routine annual physical. Continues to work part-time at a [employer]. Patient has a past medical history significant for seizure disorder, accelerated Idioventricular rythm and continues on metoprolol has upcoming appointment with a [facility] battery inspector. Seizure disorder:Patient had a breakthrough seizure in March of 2024, he believes this was due to being sick and had vomited and may have not gotten the dose of Keppra down. Now followed by Neurology and has been started on higher dose of Keppra a 1000 b.i.d.. At this point does not have a clear cause of his seizure. Has followed up with brain MRI and EEG which were both unremarkable. Vaccines: Willing to do Tdap vaccine, up-to-date with COVID vaccine, considering flu vaccine. [facility] Family History Father Cholecystitis Hypertension Heart attack, Onset Age: 48 Mother Asthma Epilepsy Social History Housing: House Alcohol intake: never Patient Tobacco Use Status: Never used Tobacco e-Cigarette/Vaping Use: Never Used service: No Current occupational status: employed Current occupation: [employer] Cognitive needs: No Hearing needs: No Vision needs: No Questionnaire PHQ-9 Over the last 2 weeks, how often have you been bothered by any of the following problems? 1. Little interest or pleasure in doing things: not at all 2. Feeling down, depressed, or hopeless: not at all 3. Trouble falling or staying asleep, or sleeping too much: not at all 4. Feeling tired or having little energy: not at all 5. Poor appetite or overeating: not at all 6. Feeling bad about yourself - or that you are a failure or have let yourself or your family down: not at all 7. Trouble concentrating on things, such as reading the newspaper or watching television: not at all 8. Moving or speaking so slowly that other people could have noticed. Or the opposite - being so fidgety or restless that you have been moving around a lot more than usual: not at all 9. Thoughts that you would be better off or of hurting yourself in some way: not at all Total score: 0 Depression Screening Interpretation: Negative Depression Screening Done: Yes 81271 - PHQ-9 Billing: Yes Source: Developed by Drs. Rob Hurst, Tamiko Partida, Michael Snyder and colleagues, with an educational sruthi from [employer]. Thrive Questionnaire Date Thrive assessed: 10/08/24 I am a: Patient What is your living situation today?: I have a steady place to live Within the past 12 months, did the food you bought not last and you didn't have the money to get more?: Never true Within the past 12 months, did you worry whether your food would run out before you got money to buy more?: Never true Do you have trouble paying for medicines?: No Do you have trouble getting transportation to medical appointments?: No Do you have trouble paying your heating and electricity bill?: No Do you have trouble taking care of your child, family member or friend?: No Do you have trouble with day-to-day activities such as bathing, preparing meals, shopping, managing finances, etc.?: No Are you currently unemployed and looking for a job?: No Are you interested in more education?: No Please select the resources that you would like help with: None Currently or been in a relationship where the following occur: No concerns reported THRIVE Score: 0 AUDIT C Alcohol Use Questionnaire (AUDIT-C) 1. How often do you have a drink containing alcohol?: Never 3. How often do you have six or more drinks on one occasion?: Never Total Score: 0 DEB-7 AMB Questionnaire DEB-7 Date DEB - 7 assessed: 10/08/24 Feeling nervous, anxious, or on edge: 0 = Not at all Not being able to stop or control worryin = Not at all Worrying too much about different things: 0 = Not at all Trouble relaxin = Not at all Being so restless that it is hard to sit still: 0 = Not at all Becoming easily annoyed or irritable: 0 = Not at all Feeling afraid as if something awful might happen: 0 = Not at all Total DEB-7 score (0-4 normal; 5-9 mild; 10-14 moderate; 15-21 severe): 0 Source: Developed by Drs. Rob Hurst, Tamiko Partida, Michael Snyder and colleagues, with an educational sruthi from [employer]. DEB-7 Assessment Billing DEB-7 Assessment Tool: DEB-7 Assessment 26705 Review of Systems Const Denies body aches, Denies chills, Denies excessive sweating, Denies fatigue, Denies fever(s) and Denies headache(s) Eyes Denies blurry vision ENT Denies dysphagia, Denies vertigo, Denies dizziness, Denies headache(s), Denies hearing loss and Denies tinnitus Card Denies chest pain, Denies chest pain with activity, Denies syncope, Denies irregular heart rhythm and Denies dyspnea Resp Denies chest congestion, Denies cough, Denies hemoptysis, Denies dyspnea and Denies wheezing GI Denies abdominal pain, Denies melena, Denies hematochezia, Denies coffee ground emesis, Denies dysphagia, Denies diarrhea, Denies nausea and Denies vomiting Denies difficulty urinating, Denies dysuria, Denies urinary frequency, Denies urinary hesitancy and Denies urinary urgency Musc Denies arthralgias, Denies limited range of motion, Denies muscle cramps and Denies muscle weakness Skin/Breast Denies rash and Denies skin ulcer Neuro Denies Abnormal speech present, Denies confusion, Denies vertigo, Denies dizziness, Denies syncope, Denies headache(s), Denies memory loss and Denies seizure-like activity Psych Denies anxiety, Denies confusion, Denies depression, Denies memory loss, Denies panic attacks and Denies paranoia Endo Denies excessive sweating, Denies fatigue, Denies flushing, Denies polydipsia and Denies polyuria Aller/Immun Denies wheezing Physical exam (Primary Care) Vital Signs: Last Vital Signs Temp 97.3 F 10/08/24 09:36 Pulse 88 10/08/24 09:36 Resp 18 10/08/24 09:36 BP 108/72 10/08/24 09:36 Pulse Ox 97 10/08/24 09:36 Oxygen Delivery Method Room Air 10/08/24 09:36 BMI result Body Mass Index 22.0 Tobacco/Smoking Status: Tobacco use Status Tobacco use date assessed 10/08/24 10/08/24 09:33 Patient Tobacco Use Status Never used Tobacco 10/08/24 09:33 e-Cigarette/Vaping Use Never Used 10/08/24 09:33 PHQ-9: PHQ-9 Score PHQ-9: Total score 0 10/08/24 10:02 Depression Screening Interpretation: Negative Thrive Assessment: Date of Thrive Assessment Date Thrive assessed 10/08/24 10/08/24 09:47 Currently or been in a relationship where the following occur: No concerns reported Const General: cooperative, comfortable, no acute distress, alert and awake; No confusion Orientation/consciousness: oriented to person, oriented to place, patient oriented x3 and No confusion HENMT Head: Yes normocephalic Ears: external ears normal and TM's normal bilaterally Face and sinus: No sinus tenderness Mouth: Normal oral and palatal mucosa present and tongue normal Teeth and gingiva: dentition normal and gingiva normal Throat: Yes posterior oropharynx normal, Yes tonsils normal and Yes uvula midline Eyes Conjunctivae: conjunctivae normal Sclerae: sclerae normal Pupils: Equal, round and reactive pupils present EOM: EOMs intact bilaterally Direct Ophthalmoscopy: No no photophobia Neck Neck: Yes no lymphadenopathy, No tender and Yes no JVD Thyroid: Thyroid normal Carotids: no bruits Chest Chest palpation & inspection: no tenderness Resp Effort & Inspection: normal respiratory effort, no audible wheezes, not labored and no stridor Auscultation: no crackles, no rales, no rhonchi and no wheezes Cardio Jugular venous distension: no JVD Rate: regular rate, not bradycardic and not tachycardic Rhythm: regular rhythm Bruits: no carotid bruits Peripheral pulses: Peripheral pulses 2+ throughout GI Inspection: Yes normal to inspection, No abdominal wall ecchymosis and No visible herniation Palpation (GI): Soft to palpation, nontender, no guarding, not rigid and No hepatosplenomegaly present Auscultation: normoactive bowel sounds General: Yes no CVA tenderness Back/Spine/Pelvis Back: no CVA tenderness and No back tenderness Cervical Spine: cervical ROM normal Thoracic/Lumbar Spine: thoracic and lumbar spine normal to inspection, straight leg raise negative bilaterally, No thoraco-lumbar ROM limited and No lumbar spinal tenderness Skin Lesions: no lesions Rashes: no rashes Wounds: no wounds Neuro General: oriented to person, oriented to place, patient oriented x3, CN's II-XI intact bilaterally and No confusion Cranial nerves: Yes Equal, round and reactive pupils present and Yes Normal accommodation reflex present Cognition (Neuro): normal cognition Speech: No Abnormal speech present Gait exam (Neuro): Normal gait present Motor exam (neuro): 5/5 motor strength present throughout Extrem Right upper extremity: full ROM; no cyanosis Left upper extremity: full ROM; no cyanosis Right lower extremity: no edema Left lower extremity: no edema Psych Appearance: grossly normal Mental Status: mental status grossly normal Affect: normal affect Attitude: cooperative Thought process: Normal thought process present Immunizations Boostrix Tdap 2.5 Lf unit-8 mcg-5 Lf/0.5 mL intramuscular syringe Performing Provider: Vince Denis PA-C [facility] [place] Administered by: Adriana Nugent CMA on 10/08/24 10:01 Dose Route Admin Location Dispensed Lot Number Expiration Date [facility] Steam Service Inspector 0.5 mL IM Left Tricep 0.5 mL [id number] 01/01/27 94149-925-24 Foodlve Total Dispensed Waste 0.5 mL 0 % VIS Given Date VIS Provided VIS Publication Date 10/08/24 Single Vaccine 20 Eligibility Eligibility Date Funding Source Not [facility] Eligible 10/08/24 Private Coding Level of Care Code Est Pt Prev Care 18-39y([id number]) Diagnoses Annual physical exam Z00.00 Other generalized epilepsy, not intractable, 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.409 Epilepsy type: other generalized Intractability: not intractable Status epilepticus: without status epilepticus AIVR (accelerated idioventricular rhythm) I44.2 Additional Codes DEB-7 Assessment Billing - DEB-7 Assessment Tool: DEB-7 Assessment 97441 ([id number]) PHQ-9 - 45908 - PHQ-9 Billing: Yes ([id number]) Assessment & Plan Assessment & Plan (1) Annual physical exam: Code(s): Z00.00 - Encounter for general adult medical examination without abnormal findings Category: Medical Plan: As per HPI (2) Epilepsy: Code(s): G40.909 - Epilepsy, unspecified, not intractable, without status epilepticus Category: Medical Qualifiers: Epilepsy type: other generalized Intractability: not intractable Status epilepticus: without status epilepticus Qualified Code(s): G40.409 - Other generalized epilepsy and epileptic syndromes, not intractable, without status epilepticus Plan: Patient followed by Dr. Jimenez Neurology. His Keppra was recently increased to a 1000 b.i.d.. Has not Had any (3) AIVR (accelerated idioventricular rhythm): Code(s): I44.2 - Atrioventricular block, complete Category: Medical Plan: Seizures in over 6 months. Patient has a video ventricular accelerated rhythm. Was on beta demetria in the past though has followed up with his battery inspector and was taken off beta demetria medication. Otherwise doing well without any overt Orders: Orders Complete Blood Count no Diff Today Z13.1 - Encounter for screening for diabetes mellitus Comprehensive Cascade. Panel Fast Today Z13.1 - Encounter for screening for diabetes mellitus Levetiracetam Keppra Today R56.9 - Unspecified convulsions TDaP Immunization Today R56.9 - Unspecified convulsions, Z23 - Encounter for immunization Medications: Discontinued levetiracetam (Keppra) Discontinued Reason: Doctor's Order 500 mg PO Q12H 60 tabs 2RF R56.9 - Unspecified convulsions
[2024-10-08 09:36] VITALS: BP 108/72; PULSE 88; RESP 18; TEMP 36.3; O2SAT 97; BMI 22.0
== END 2024-10-08 10:05 | disposition home or self-care (01) ==
LOC: HO.HMCH 09:30
PROVIDERS: PCP Physician Assistant; Visit Provider Physician Assistant
DX: Z00.00 Encounter for general adult medical examination without abnormal findings (principal); G40.409 Other generalized epilepsy and epileptic syndromes, not intractable, without status epilepticus; I44.2 Atrioventricular block, complete; Z23 Encounter for immunization; R56.9 Unspecified convulsions

== ENCOUNTER → 2024-10-08 09:29 | Outpatient (BNVA) | payer BC, SELFPAY | PROVIDERS: PCP Physician Assistant; Visit Provider Physician Assistant | DX: Z00.00 Encounter for general adult medical examination without abnormal findings (principal); Z23 Encounter for immunization; G40.909 Epilepsy, unspecified, not intractable, without status epilepticus; I44.2 Atrioventricular block, complete; Z79.899 Other long term (current) drug therapy; Z13.31 Encounter for screening for depression; Z13.39 Encounter for screening examination for other mental health and behavioral disorders | CPT/HCPCS: 90471; 90715; 96127 ==